=== PATIENT | male | born 2000 | race Caucasian/White ===

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

== ENCOUNTER 2020-08-04 10:15 | Emergency (ER) | payer OTHER ==
[~2020-08-04] VITALS: Ht 182.9 cm; Wt 63.6 kg
[2020-08-04 12:17] VITALS: BP 115/64
== END 2020-08-04 12:17 | disposition home or self-care (01) ==
LOC: EMS 10:22
DX: Z20.828 Contact with and (suspected) exposure to other viral communicable diseases (principal)
CPT/HCPCS: 87426

== ENCOUNTER 2023-06-02 15:08 | Emergency (ER) | payer OTHER ==
[~2023-06-02] VITALS: Ht 185.4 cm; Wt 65.9 kg
[2023-06-02 15:12] VITALS: TEMP 98.2
[2023-06-02] MEDS ORDERED: ACETAMINOPHEN 325 MG TABLET PO ONE (15:30)
[2023-06-02] MEDS ORDERED: ONDANSETRON HCL 4 MG TABLET PO ONE (15:30)
[2023-06-02 15:44] LABS: BASOPHILS % (AUTO) 0.7 % (0.0-2.0); EOSINOPHILS % (AUTO) 12.9 % (1.0-6.0); HEMATOCRIT 42.8 % (41-53); HEMOGLOBIN 14.5 g/dL (13.5-17.5); LYMPHOCYTES # (AUTO) 1.9 K/uL (1.0-4.8); MEAN CORPUSCULAR HEMOGLOBIN 31.6 pg (26.0-34.0); MEAN CORPUSCULAR HGB CONC 33.8 G/dL (31.0-37.0); MEAN CORPUSCULAR VOLUME 93 fL (80-100); MONOCYTES # (AUTO) 0.8 K/uL (0.1-1.0); MONOCYTES % (AUTO) 12.2 % (2.0-9.0); NEUTROPHILS # (AUTO) 2.8 K/uL (1.8-7.7); NEUTROPHILS % (AUTO) 44.2 % (40.0-70.0); PLATELET COUNT (AUTO) 234 K/uL (150-450); RED BLOOD CELL COUNT(AUTO) 4.59 MIL/uL (4.50-5.90); RED CELL DISTRIBUTION WIDTH 13.2 % (11.5-14.5)
[2023-06-02 15:49] VITALS: BP 117/67; PULSE 70; RESP 18
[2023-06-02 15:52] LABS: ANION GAP 4 mmol/L (8-16); CARBON DIOXIDE 31 mmol/L (22-29); CHLORIDE 102 mmol/L (98-107); GLOMERULAR FILTR. RATE CALC > 60 mL/min (>60); GLUCOSE,RANDOM 109 mg/dL (70-110); SODIUM SERUM 137 mmol/L (136-145)
[2023-06-02 15:58] LABS: ALANINE AMINOTRANSFERASE 31 U/L (12-78); ALBUMIN 4.2 g/dL (3.4-5.0); ALKALINE PHOSPHATASE 95 U/L (46-116); ASPARTATE AMINOTRANSFERASE 19 U/L (15-37); BILIRUBIN,TOTAL 0.4 mg/dL (0.1-1.0); TOTAL PROTEIN, SERUM 7.4 g/dL (6.4-8.2)
[2023-06-02 16:41] LABS: COVID AG,FIA SOURCE NASOPHARYNGEAL
[2023-06-02 17:02] LABS: INFLUENZA TYPE A NEGATIVE FOR TYPE A (NEGATIVE); INFLUENZA TYPE B NEGATIVE FOR TYPE B (NEGATIVE)
[2023-06-02 17:06] LABS: RAPID GROUP A STREP NEGATIVE (NEGATIVE)
== END 2023-06-02 17:35 | disposition home or self-care (01) ==
LOC: EMS 15:08
DX: B34.9 Viral infection, unspecified (principal); Z20.822 Contact with and (suspected) exposure to COVID-19
CPT/HCPCS: 99283; 87426; 80053; 85025; 87430; 87804; 36415; Q0162